=== PATIENT | female | born 1975 | race African-American/Black ===

== ENCOUNTER 2024-07-09 05:36 | Emergency (ER) | payer MEDICARE, MEDICAID ==
[~2024-07-09] VITALS: Ht 167.6 cm; Wt 60.0 kg
[2024-07-09 05:39] VITALS: O2SAT 99
[2024-07-09] MEDS ORDERED: BENZ200C52 MT (07:33)
[2024-07-09 08:15] VITALS: BP 133/88; PULSE 84; RESP 18; TEMP 36.6; O2SAT 99
== END 2024-07-09 08:29 | disposition home or self-care (01) ==
LOC: ER 05:36
DX: R05.9 Cough, unspecified (principal)
CPT/HCPCS: 71045; 99283